=== PATIENT | male | born 1970 | race Native Hawaiian/Other Pacific Islander ===

== ENCOUNTER → 2020-09-04 | Outpatient (CLI) | payer MEDICAID ==
[2020-09-04 14:56] LABS: HEMOGLOBIN 10.9 g/dL (13.3-17.7); MEAN PLATELET VOLUME 10.5 fL (9.0-12.2); WHITE BLOOD COUNT 8.5 10^3/uL (4.3-11.0)
[2020-09-04 14:57] LABS: BILIRUBIN,URINE NEGATIVE (NEGATIVE); CLARITY,URINE CLEAR; COLOR,URINE YELLOW; GLUCOSE, URINE (UA) 2+ (NEGATIVE); KETONES,URINE NEGATIVE (NEGATIVE); LEUKOCYTE ESTERASE ,URINE NEGATIVE (NEGATIVE); NITRITE,URINE NEGATIVE (NEGATIVE); PROTEIN,URINE 2+ (NEGATIVE)
[2020-09-04 15:09] LABS: BACTERIA,URINE NEGATIVE /HPF; SQUAMOUS EPITHELIAL CELL,UR 0-2 /HPF
[2020-09-04 15:10] LABS: ALBUMIN 3.6 GM/DL (3.2-4.5); CALCIUM 8.7 MG/DL (8.5-10.1); CREATININE SERUM 2.87 MG/DL (0.60-1.30); PHOSPHORUS 3.8 MG/DL (2.3-4.7); POTASSIUM 4.9 MMOL/L (3.6-5.0)
[2020-09-04 22:01] LABS: HEPATITIS C ANTIBODY C Non-Reactive (Non-Reactive)
== END ==
LOC: LAB 13:47
PROVIDERS: ATTEND Nurse Practitioner
DX: N18.4 Chronic kidney disease, stage 4 (severe) (principal)
CPT/HCPCS: 36415; 80069; 81000; 82306; 82570; 83883; 83970; 84155; 84156; 84165; 84166; 85027; 86021; 86038; 86160; 86334; 86335; 86706; 86803; 87340

== ENCOUNTER → 2020-09-29 | Outpatient (CLI) | payer MEDICAID | LOC: RAD 09:36 | PROVIDERS: ATTEND Nurse Practitioner | DX: N18.4 Chronic kidney disease, stage 4 (severe) (principal) ==

== ENCOUNTER → 2021-10-05 | Outpatient (CLI) | payer MEDICAID | LOC: WOUNDCARE 13:00 | PROVIDERS: ATTEND Family Medicine | DX: E11.9 Type 2 diabetes mellitus without complications (principal); L84 Corns and callosities; E11.51 Type 2 diabetes mellitus with diabetic peripheral angiopathy without gangrene | CPT/HCPCS: 99213 ==

== ENCOUNTER → 2021-10-14 | Outpatient (CLI) | payer MEDICAID | LOC: WOUNDCARE 14:55 | PROVIDERS: ATTEND Family Medicine | DX: E11.9 Type 2 diabetes mellitus without complications (principal); L84 Corns and callosities; I70.201 Unspecified atherosclerosis of native arteries of extremities, right leg | CPT/HCPCS: 99212 ==

== ENCOUNTER → 2021-10-14 | Outpatient (CLI) | payer MEDICAID ==
[2021-10-14 15:59] LABS: BASOPHILS # (AUTO) 0.1 10^3/uL (0.0-0.1); BASOPHILS % (AUTO) 1 % (0-10); EOSINOPHILS # (AUTO) 0.4 10^3/uL (0.0-0.3); EOSINOPHILS % (AUTO) 4 % (0-10); HEMATOCRIT 36 % (40-54); HEMOGLOBIN 11.6 g/dL (13.3-17.7); LYMPHOCYTES # (AUTO) 2.5 10^3/uL (1.0-4.0); LYMPHOCYTES % (AUTO) 30 % (12-44); MEAN CORPUSCULAR HEMOGLOBIN 30 pg (25-34); MEAN CORPUSCULAR HGB CONC 33 g/dL (32-36); MEAN CORPUSCULAR VOLUME 91 fL (80-99); MEAN PLATELET VOLUME 9.5 fL (9.0-12.2); MONOCYTES # (AUTO) 0.8 10^3/uL (0.0-1.0); MONOCYTES % (AUTO) 9 % (0-12); NEUTROPHILS # (AUTO) 4.6 10^3/uL (1.8-7.8); NEUTROPHILS % (AUTO) 55 % (42-75); PLATELET COUNT 333 10^3/uL (130-400); WHITE BLOOD COUNT 8.3 10^3/uL (4.3-11.0)
[2021-10-14 16:09] LABS: ALBUMIN 3.4 GM/DL (3.2-4.5)
[2021-10-14 16:10] LABS: POTASSIUM 4.5 MMOL/L (3.6-5.0)
[2021-10-14 16:11] LABS: CALCIUM 9.4 MG/DL (8.5-10.1)
--- NOTE | 2021-10-14 16:13 | Diagnostic Imaging Report ---
INDICATION: Soft tissue defect of the right foot. COMPARISON: None. FINDINGS: Multiple radiographic views of the right foot were obtained. No acute osseous abnormality is seen. There is no acute fracture. No suspicious lytic or blastic bony lesions are identified. Joint spaces are maintained. No unexpected radiopaque foreign bodies are seen. There is calcified arteriosclerosis. IMPRESSION: 1. No acute fracture or dislocation of the right foot. 2. No suspicious osteolytic lesions. Please note, osteomyelitis cannot be excluded based on radiographs alone. If there is persistent concern for osteomyelitis, correlation with MRI is advised. Dictated by: Dictated on workstation # [id number]
[2021-10-14 16:14] LABS: BILIRUBIN,TOTAL 0.3 MG/DL (0.1-1.0)
[2021-10-14 16:16] LABS: CREATININE SERUM 3.16 MG/DL (0.60-1.30)
== END ==
LOC: RAD 15:23
PROVIDERS: ATTEND Family Medicine
DX: E11.9 Type 2 diabetes mellitus without complications (principal); L84 Corns and callosities; I70.201 Unspecified atherosclerosis of native arteries of extremities, right leg
CPT/HCPCS: 36415; 73630; 80053; 85025

== ENCOUNTER → 2021-12-11 | Outpatient (CLI) | payer MEDICAID | LOC: CARD 10:00 | PROVIDERS: ATTEND Internal Medicine Cardiovascular Disease | DX: I35.0 Nonrheumatic aortic (valve) stenosis (principal); I11.9 Hypertensive heart disease without heart failure | CPT/HCPCS: 93306 ==

== ENCOUNTER → 2022-01-07 | Outpatient (CLI) | payer MEDICAID | LOC: WOUNDCARE 09:21 | PROVIDERS: ATTEND Family Medicine | DX: E11.621 Type 2 diabetes mellitus with foot ulcer (principal); L97.513 Non-pressure chronic ulcer of other part of right foot with necrosis of muscle; I70.235 Atherosclerosis of native arteries of right leg with ulceration of other part of foot; N18.4 Chronic kidney disease, stage 4 (severe); D63.1 Anemia in chronic kidney disease; E11.40 Type 2 diabetes mellitus with diabetic neuropathy, unspecified | CPT/HCPCS: 99212 ==

== ENCOUNTER → 2022-01-07 | Outpatient (CLI) | payer MEDICAID | LOC: LAB 10:55 | PROVIDERS: ATTEND Family Medicine | DX: L97.513 Non-pressure chronic ulcer of other part of right foot with necrosis of muscle (principal) | CPT/HCPCS: 36415; 82306; 82607; 84134; 85652; 86141 ==

== ENCOUNTER → 2022-01-08 | Outpatient (CLI) | payer MEDICAID | LOC: WOUNDCARE 11:02 | PROVIDERS: ATTEND Family Medicine | DX: E11.621 Type 2 diabetes mellitus with foot ulcer (principal) | CPT/HCPCS: 99212 ==

== ENCOUNTER → 2022-01-14 | Outpatient (CLI) | payer MEDICAID | LOC: WOUNDCARE 10:54 | PROVIDERS: ATTEND Family Medicine | DX: E11.621 Type 2 diabetes mellitus with foot ulcer (principal); L97.513 Non-pressure chronic ulcer of other part of right foot with necrosis of muscle; I70.235 Atherosclerosis of native arteries of right leg with ulceration of other part of foot; N18.4 Chronic kidney disease, stage 4 (severe); E11.22 Type 2 diabetes mellitus with diabetic chronic kidney disease; D63.1 Anemia in chronic kidney disease; E11.40 Type 2 diabetes mellitus with diabetic neuropathy, unspecified; E55.9 Vitamin D deficiency, unspecified; E11.52 Type 2 diabetes mellitus with diabetic peripheral angiopathy with gangrene; I96 Gangrene, not elsewhere classified | CPT/HCPCS: 99213 ==

== ENCOUNTER → 2022-01-14 | Outpatient (CLI) | payer MEDICAID ==
--- NOTE | 2022-01-14 14:25 | Diagnostic Imaging Report ---
PROCEDURE: MRI right lower extremity without contrast. TECHNIQUE: Multiplanar, multisequence [id number] MRI of the right lower extremity was accomplished. 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 COMPARISON: Radiographs from 10/14/2021. FINDINGS: No acute fracture is seen in the imaged right foot. Alignment is normal. No cortical erosions are seen. There is no bone marrow edema or evidence of T1-weighted marrow replacement. The Lisfranc ligament is intact. There is a soft tissue ulceration plantar to the first metatarsal head with overlying MRI marker. No soft tissue fluid collections are appreciated on this noncontrast exam. There is mild generalized muscular atrophy which is likely neurogenic. The imaged flexor and extensor tendons appear intact. IMPRESSION: 1. Soft tissue ulceration plantar to the right first metatarsal head. No evidence of osteomyelitis. No soft tissue fluid collection seen. Dictated by: Dictated on workstation # [id number]
== END ==
LOC: RAD 10:15
PROVIDERS: ATTEND Family Medicine
DX: L97.513 Non-pressure chronic ulcer of other part of right foot with necrosis of muscle (principal); E11.621 Type 2 diabetes mellitus with foot ulcer; I70.235 Atherosclerosis of native arteries of right leg with ulceration of other part of foot; E11.22 Type 2 diabetes mellitus with diabetic chronic kidney disease; N18.4 Chronic kidney disease, stage 4 (severe); D63.1 Anemia in chronic kidney disease; R26.89 Other abnormalities of gait and mobility; E11.40 Type 2 diabetes mellitus with diabetic neuropathy, unspecified

== ENCOUNTER → 2022-01-19 | Outpatient (CLI) | payer MEDICAID | LOC: WOUNDCARE 11:05 | PROVIDERS: ATTEND Family Medicine | DX: E11.621 Type 2 diabetes mellitus with foot ulcer (principal); L97.513 Non-pressure chronic ulcer of other part of right foot with necrosis of muscle; I12.9 Hypertensive chronic kidney disease with stage 1 through stage 4 chronic kidney disease, or unspecified chronic kidney disease; I70.235 Atherosclerosis of native arteries of right leg with ulceration of other part of foot; N18.4 Chronic kidney disease, stage 4 (severe); E11.22 Type 2 diabetes mellitus with diabetic chronic kidney disease; D63.1 Anemia in chronic kidney disease; E11.40 Type 2 diabetes mellitus with diabetic neuropathy, unspecified; E55.9 Vitamin D deficiency, unspecified; E11.52 Type 2 diabetes mellitus with diabetic peripheral angiopathy with gangrene; I96 Gangrene, not elsewhere classified | CPT/HCPCS: 99213 ==

== ENCOUNTER → 2022-01-28 | Outpatient (CLI) | payer MEDICAID | LOC: WOUNDCARE 10:35 | PROVIDERS: ATTEND Family Medicine | DX: I70.235 Atherosclerosis of native arteries of right leg with ulceration of other part of foot (principal); N18.4 Chronic kidney disease, stage 4 (severe); E11.22 Type 2 diabetes mellitus with diabetic chronic kidney disease; D63.1 Anemia in chronic kidney disease; R26.89 Other abnormalities of gait and mobility; E11.40 Type 2 diabetes mellitus with diabetic neuropathy, unspecified; E55.9 Vitamin D deficiency, unspecified; L84 Corns and callosities | CPT/HCPCS: 99212 ==

== ENCOUNTER 2022-08-02 17:03 | Emergency (ER) | payer OTHER, MEDICAID ==
[~2022-08-02] VITALS: Ht 177.8 cm; Wt 86.0 kg
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
[2022-08-02 17:32] VITALS: BP 189/114
== END 2022-08-02 17:32 | disposition home or self-care (01) ==
LOC: EDUNIT# 17:03 → ER 17:07
DX: M25.511 Pain in right shoulder (principal); M54.2 Cervicalgia; M79.651 Pain in right thigh; V43.62XA Car passenger injured in collision with other type car in traffic accident, initial encounter; Y92.410 Unspecified street and highway as the place of occurrence of the external cause
CPT/HCPCS: 99282

== ENCOUNTER → 2022-10-13 | Outpatient (CLI) | payer MEDICAID | LOC: WOUNDCARE 09:48 | PROVIDERS: ATTEND Family Medicine | DX: E11.22 Type 2 diabetes mellitus with diabetic chronic kidney disease (principal); I12.9 Hypertensive chronic kidney disease with stage 1 through stage 4 chronic kidney disease, or unspecified chronic kidney disease; N18.6 End stage renal disease; E11.40 Type 2 diabetes mellitus with diabetic neuropathy, unspecified; M14.671 Charcot's joint, right ankle and foot; I70.201 Unspecified atherosclerosis of native arteries of extremities, right leg | CPT/HCPCS: 99213 ==

== ENCOUNTER → 2023-02-02 | Outpatient (CLI) | payer MEDICAID | LOC: WOUNDCARE 07:59 | PROVIDERS: ATTEND Family Medicine | DX: L84 Corns and callosities (principal); I70.291 Other atherosclerosis of native arteries of extremities, right leg; E11.22 Type 2 diabetes mellitus with diabetic chronic kidney disease; N18.4 Chronic kidney disease, stage 4 (severe); E11.40 Type 2 diabetes mellitus with diabetic neuropathy, unspecified; F12.20 Cannabis dependence, uncomplicated | CPT/HCPCS: 99213 ==

== ENCOUNTER 2023-05-11 08:48 | Day surgery (SDC) | payer MEDICAID ==
[~2023-05-11] VITALS: Ht 177.8 cm; Wt 74.4 kg
[2023-05-11] VITALS (11 sets, daily range): BP systolic 121–232; BP diastolic 74–132
[~2023-05-11 08:48] MED LIST: AMLO-251 PO; ASPI-999 PO; ATOR40TA70 PO; CALC0.5C11 PO; CLN.1T PO; GBPN600T PO; INSU100V6 SQ; LINA5TAB PO; METO50TA7 PO; PANT40GR PO; PROM25TA14 PO; TORS100T4 PO; [UNRECOGNIZED DRUG - CODE] IV
[2023-05-11] MEDS ORDERED: LACTATED RINGERS 1,000 ML 1,000 ML IV PRN (09:00)
[2023-05-11] MEDS ORDERED: LIDOCAINE/EPI 1%-1:200,000 (XYLOCAINE) 30 ML VIAL ONE (09:00)
[2023-05-11] MEDS ORDERED: ceFAZolin INJECTION 2,000 MG in NS (IVPB) 50 ML 50 ML IV ONE (09:00)
[2023-05-11] MEDS ORDERED: fentaNYL INJECTION 100 MCG/2 ML VIAL ONE (10:26)
[2023-05-11] MEDS ORDERED: ONDANSETRON INJECTION 4 MG/2 ML (SDV) ONE (10:26)
[2023-05-11] MEDS ORDERED: dexAMETHasone INJ 10 MG/ML 1 ML VIAL ONE (10:26)
[2023-05-11] MEDS ORDERED: LIDOCAINE PF 2% 5 ML VIAL ONE (10:26)
[2023-05-11] MEDS ORDERED: SEVOFLURANE (ULTANE) 15 ML INHAL SOLN ONE (10:26)
[2023-05-11] MEDS ORDERED: proPOfol INJECTION 200 MG/20 ML VIAL IV ONE (10:26)
[2023-05-11] MEDS ORDERED: MIDAZOLAM INJ 2 MG/2 ML VIAL ONE (10:27)
[2023-05-11] MEDS ORDERED: NS IV 500 ML 500 ML IV SCH (10:30)
--- NOTE | 2023-05-11 10:38 | Progress Note-Pre Operative ---
Pre-Operative Progress Note Date of Available H&P: Apr 28, 2023 Date H&P Reviewed: May 11, 2023 Time H&P Reviewed: 10:34 History & Physical: H&P Reviewed, Patient Examed, No changes noted Pre-Operative Diagnosis: Incarcerated right inguinal hernia, site marked SYED VEGA DO May 11, 2023 10:38
[2023-05-11] MEDS ORDERED: LIDOCAINE/EPI 1%-1:200,000 (XYLOCAINE) 30 ML VIAL INJ ONE (12:23)
--- NOTE | 2023-05-11 12:28 | Progress Note-Post Operative ---
Post-Operative Progess Note Surgeon (s)/Ironing Worker (s) Surgeon SYED VEGA DO Ironing Worker: Rima Pre-Operative Diagnosis Incarcerated right inguinal hernia, site marked Post-Operative Diagnosis Same plus cord lipoma Procedure & Operative Findings Date of Procedure 05/11/23 Procedure Performed/Findings Open right inguinal herniarraphy with mesh placement Excision of cord lipoma INDICATIONS: The patient is a 52, male male with a large incarcerated right inguinal hernia. He understands risks and benefits of procedure and wished to proceed with procedure. Consent was signed in the chart. DESCRIPTION OF PROCEDURE: The patient was taken to the operating suite, was prepped and draped in sterile fashion. Surgical pause was performed. Local anesthetic was infiltrated at the ASIS to perform ilio-inguinal nerve block, at the pubic tubercle and in the lower quadrant where incision was to be made. Incision was made with a #15 blade and cautery used to dissect down to the external oblique. I then infiltrated this with local and then opened down through the external ring. The spermatic cord was then dissected around at the pubic tubercle; able to get all the way around. A Kaveh drain was placed around it and there was no direct defect present. A indirect hernia sac was present and found a cord lipoma; both of which were then dissected off of spermatic cord and passed off the table. The hernia sac was then twisted and suture ligated. Using a 12 x 8cm ProGrip mesh, this was secured at Ron's ligament and then incorporated around the spermatic cord and placed under the external oblique; thereby recreating the internal inguinal ring. Hemostasis was achieved. The external oblique was then closed with a running 3-0 vicryl; recreating the external ring. Carole's fascia was then reapproximated using 3-0 Vicryl and skin was then closed using 4-0 Monocryl in a subcuticular fashion. The abdomen was then washed and dried and Skin Affix was placed over the incision. The patient tolerated procedure well without any complications and taken to recovery room in stable condition. Dr. Abarca assisted on this case helping to identify anatomy, hold anatomy out of the way and close the incision. Anesthesia Type LMA Estimated Blood Loss Estimated blood loss (mL): scant Specimens/Packing Specimens Removed cord lipoma hernia sac SYED VEGA DO May 11, 2023 12:28
[2023-05-11] MEDS ORDERED: ACHD5005 PO (12:31)
--- NOTE | 2023-05-11 12:32 | Discharge Inst-Surgical ---
Discharge Inst-Surgical Depart Medication/Instructions New, Converted or Re-Newed RX: Transmitted to Pharmacy Patient Instructions Follow up Appt: Make appointment for 1 week. [phone] Instructions: No lifting greater than 20 pounds. No strenuous activity. May shower in 24 hours, no tub bath or soaking. Use incentive spirometer at home as directed. No Smoking Skin/Wound Care: May remove bandages in am. You need to leave the Dermabond on incision it will fall off on it's own. Symptoms to Report: Appetite Changes, Extremity Discoloration, Numbness/Tingling, Swelling Increased, Bleeding Excessive, Eyesight Changes, Pain Increased, Urine Color Change, Constipation(Persistent), Fever over 101 degree F, Pain/Pressure in chest, Urinating Difficulty, Cough Up/Vomit Blood, Heart Beat Irreg/Pounding, Pain/Pressure in jaw, Cramps in feet or legs, Lightheadedness, Pain/Pressure in shoulder, Diarrhea(Persistent), Memory Changes Suddenly, Questions/Concerns, Weight gain consecutive days, Dizziness/Fainting, Nausea/Vomiting, Shortness of Breath, Weight gain over 2 pounds If questions or concerns contact your physician Or seek help at emergency department. Activity Activity as Tolerated: Yes Activity Instructions: Avoid Stress to Incision Driving Instructions: No Driving/Refer to Dr. Fernandes Discharge Diet: No Restrictions Diet After 24 Hours: Clear Liquid if Nauseous If Any Problems/Questions/Issu: Contact Your Physician, Go to Emergency Room Skin/Wound Care Infection Signs and Symptoms: Increased Redness, Foul Odor of Wound, Increased Drainage, Skin Itchy or Has a Rash, Increased Swelling, Temperature Above 101 F Bathing Instructions: Shower Stitches/Duncan/Dermabond Dis: SYED Ramires DO May 11, 2023 12:32
--- NOTE | 2023-05-11 12:48 | Anesthesia-General Post-Op ---
General Patient Condition Mental Status/LOC: Same as Preop Cardiovascular: Satisfactory Nausea/Vomiting: Absent Respiratory: Satisfactory Pain: Controlled Complications: Absent Post Op Complications Complications None Follow Up Care/Instructions Patient Instructions None needed. Anesthesia/Patient Condition Patient Condition Patient is doing well, no complaints, stable vital signs, no apparent adverse anesthesia problems. No complications reported per nursing. TRAE HUA CRNA May 11, 2023 12:48
[2023-05-11] MEDS ORDERED: ONDANSETRON INJECTION 4 MG/2 ML (SDV) IVP PRN (13:00)
[2023-05-11] MEDS ORDERED: morphine INJ 10 MG/ML 1ML (SYR OR VIAL) IVP ONE (13:00)
[2023-05-11] MEDS ORDERED: HYDROcodone/ACETAMINOPHEN 5 MG/325 MG TABLET PO ONE (14:00)
== END 2023-05-11 15:00 ==
LOC: SDC 08:48
PROVIDERS: ATTEND Surgery
DX: K40.30 Unilateral inguinal hernia, with obstruction, without gangrene, not specified as recurrent (principal); D17.6 Benign lipomatous neoplasm of spermatic cord; N18.6 End stage renal disease; E11.22 Type 2 diabetes mellitus with diabetic chronic kidney disease; K59.09 Other constipation; Z99.2 Dependence on renal dialysis; Z79.4 Long term (current) use of insulin; Z79.84 Long term (current) use of oral hypoglycemic drugs
CPT/HCPCS: 49507; 82947; 84132; 87081; C1781; 36415